=== PATIENT | female | born 1995 ===

== ENCOUNTER 2022-04-17 15:32 | Outpatient (CLI) | payer OTHER | END 2022-04-17 16:35 | disposition home or self-care (01) | LOC: PRENATAL 15:32 | PROVIDERS: ATTEND Obstetrics & Gynecology Maternal & Fetal Medicine | DX: O09.219 Supervision of pregnancy with history of pre-term labor, unspecified trimester (principal); O36.80X0 Pregnancy with inconclusive fetal viability, not applicable or unspecified; Z36 Encounter for antenatal screening of mother; Z14.8 Genetic carrier of other disease; O34.219 Maternal care for unspecified type scar from previous cesarean delivery; Z3A.14 14 weeks gestation of pregnancy ==

== ENCOUNTER 2022-05-22 11:53 | Outpatient (CLI) | payer OTHER | END 2022-05-22 13:25 | disposition home or self-care (01) | LOC: PRENATAL 11:53 | PROVIDERS: ATTEND Obstetrics & Gynecology Maternal & Fetal Medicine | DX: O35.9XX0 Maternal care for (suspected) fetal abnormality and damage, unspecified, not applicable or unspecified (principal); O35.3XX0 Maternal care for (suspected) damage to fetus from viral disease in mother, not applicable or unspecified; O09.219 Supervision of pregnancy with history of pre-term labor, unspecified trimester; O34.219 Maternal care for unspecified type scar from previous cesarean delivery; Z3A.19 19 weeks gestation of pregnancy ==

== ENCOUNTER 2022-07-24 15:31 | Outpatient (CLI) | payer OTHER ==
[~2022-07-24 15:31] MED LIST: LEVOTHYROXINE50 MC1 PO
== END 2022-07-24 16:23 | disposition home or self-care (01) ==
LOC: PRENATAL 15:31
PROVIDERS: ATTEND Obstetrics & Gynecology Maternal & Fetal Medicine
DX: O26.849 Uterine size-date discrepancy, unspecified trimester (principal); O09.219 Supervision of pregnancy with history of pre-term labor, unspecified trimester; Z3A.28 28 weeks gestation of pregnancy